=== PATIENT | male | born 1985 ===

== ENCOUNTER 2020-08-30 18:14 | Emergency (ER) | payer SELFPAY ==
[~2020-08-30] VITALS: Ht 180.3 cm; Wt 84.1 kg
--- NOTE | 2020-08-30 18:29 | NUR ---
BIB EMS FOR C/O DOING METH LAST NIGHT AND AMBULATING ALL DAY. PT IS EXPERIENCING AUDITORY HALLUCINATIONS AND BELIEVES HE WAS LABELED A PEDOPHILE AND PEOPLE CHASING PT. PT ALSO C/O HURT FEET. DENIES SI/HI. 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 PT RESTING ON GURNEY. NADN. MONITORS APPLIED. VSS. WARM BLANKET PROVIDED. CALL LIGHT IN REACH.
[2020-08-30 19:13] LABS: ALANINE AMINOTRANSFERASE 25 U/L (12-78); ANION GAP 7 mmol/L (5-15); CALCIUM 9.8 mg/dL (8.5-10.1); CHLORIDE 105 mmol/L (98-107)
[2020-08-30 19:14] LABS: BASOPHILS % (AUTO) 0 % (0-1); EOSINOPHILS % (AUTO) 0 % (1-7); LYMPHOCYTES % (AUTO) 34 % (22-44); MEAN CORPUSCULAR HEMOGLOBIN 31.9 pg (27.5-34.5); MEAN PLATELET VOLUME 7.2 fL (7.4-10.4); MONOCYTES % (AUTO) 12 % (2-9); NEUTROPHILS % (AUTO) 54 % (42-75); PLATELET COUNT 367 x10^3/uL (130-400); RED BLOOD COUNT 4.96 x10^6/uL (4.38-5.82); RED CELL DISTRIBUTION WIDTH 13.3 % (9.4-14.8)
[2020-08-30 19:15] LABS: ALKALINE PHOSPHATASE 74 U/L (45-117); BILIRUBIN,TOTAL 1.1 mg/dL (0.2-1.0); CREATINE KINASE, TOTAL 594 U/L (39-308); TOTAL PROTEIN 7.6 g/dL (6.4-8.2)
--- NOTE | 2020-08-30 19:18 | NUR ---
PT RESTING ON BANDAR. DENEEN. VSS. AWARE OF NEED FOR UA. PT STATES "I CAN'T PEE RIGHT NOW". URINAL LEFT AT BEDSIDE.
[2020-08-30] MEDS ORDERED: KETOROLAC 30 MG/1 ML ONE (19:48)
--- NOTE | 2020-08-30 19:53 | NUR ---
PT RESTING ON GURNEY. ESP[place]ZA VSS. AWARE OF NEED FOR UA SAMPLE. PT STATES HE IS STILL UNABLE TO PROVIDE SAMPLE AT THIS TIME.
[2020-08-30] MEDS ORDERED: KETOROLAC 30 MG/1 ML IM ONE (20:00)
--- NOTE | 2020-08-30 20:10 | NUR ---
PT REFUSING TO PROVIDE UA. ERP DR. PECK NOTIFIED. ERP AT BEDSIDE FOR RE-EVAL.
--- NOTE | 2020-08-30 20:21 | NUR ---
REPORT GIVEN TO CRYSTAL STANTON.
[2020-08-30 20:53] VITALS: BP 119/88
== END 2020-08-30 20:55 | disposition home or self-care (01) ==
LOC: ED 18:30
DX: E86.0 Dehydration (principal)
CPT/HCPCS: 36415; 80053; 82550; 85025; 96372; 99283; J1885